=== PATIENT | female | born 1965 | race Two or more races ===

== ENCOUNTER 2021-11-25 15:38 | Inpatient (IN) | payer OTHER ==
[~2021-11-25] VITALS: Ht 160 cm; Wt 54.4 kg
[2021-11-25] MEDS ORDERED: HUMALOG100 UNIT/2 SQ (15:47)
[2021-11-25] MEDS ORDERED: COZAAR25 MG PO (15:47)
--- NOTE | 2021-11-25 15:48 | NUR ---
PACIENTE REFIERE DOLOR DE PECHO DIARREAS, DOLOR ABDOMINAL DESDE JAREN. PACIENTE UBICADA EN LA CAMA 6.
--- NOTE | 2021-11-25 18:16 | NUR ---
SE EDUCA A PTE SOBRE TX MEDICO ESTA REFIERE ENTENDER. SE CARRIE MUESTRAS DE LABORATORIO UTILIZANDO MEDIDAS ASEPTICAS. SE COLOCA H/L EL CUAL SE ENCUENTRA PATENTE. SE ADMINISTRAN MEDICAMENTOS A PTE LOS CUALES TOLERA. SE NOTIFICAN ABGS PENDIENTES A REALIZAR.
--- NOTE | 2021-11-25 20:01 | NUR ---
SE REALIZA ADMINISTRACION DE MEDICAMENTOS POR ORDEN MEDICA. SE ORIENTA A PACIENTE SOBRE USO Y EFECTOS.
--- NOTE | 2021-11-25 21:58 | NUR ---
SE REALIZAN MUESTRAS DE CASSY POR ORDEN MEDICA Y SE ORIENTA A PACIENTE SOBRE USO Y EFECTOS.
--- NOTE | 2021-11-25 23:25 | NUR ---
SE RECIBE PTE FEMENINA ALERTA Y ORIENTADA EN [place] ESFERAS DEL TURNO ANTERIOR; SE OBSERVA CON BUEN PATRON RESPIRATORIO Y NO REFIERE DOLOR. VENOPUNCION PATENTE, MARIANO DE EDEMA Y ERITEMA RECIBIENDO TERAPIA DE IVFS 0.9NSS BAJANDO A 250ML/HR. PTE EN NATI NIVEL MAS BAJAO CON BARANDAS ELEVADAS Y FRENOS COLOCADOS POR SEGURIDAD. SE ADMINISTRAN MEDICAMENTOS, BAJO MEDIDAS ASEPTICAS. PTE NO PRESENTA REACCION ADVERSA AL MOMENTO.
--- NOTE | 2021-11-26 07:13 | NUR ---
PTE ALERTA Y ORIENTADA POR LAURA ESFERAS CON BUEN PATRON RESPIRATORIO. TIENE CANCALIZACION PATENTE MARIANO DE EDEMA Y ERITEMA. CONSULTA CON DR.MUNOZ MOYER
--- NOTE | 2021-11-26 08:12 | NUR ---
SE NOTIFICA A MRS. PICKARD SOBRE SONOGRAFIA ABDOMINAL.
[2021-11-30] MEDS ORDERED: PANTOPRAZOLE SO40 MG (08:39)
[2021-11-30] MEDS ORDERED: IRBESARTAN-HCT1 EAC1 (08:39)
[2021-11-30] MEDS ORDERED: LANSOPRAZOLE30 MG (08:40)
[2021-11-30] MEDS ORDERED: METHIMAZOLE10 MG (08:40)
[2021-11-30] MEDS ORDERED: ZOLPIDEM TARTRA10 MG (08:40)
== END 2021-12-01 11:33 | disposition home or self-care (01) | DRG 370 ==
LOC: ER 15:38 → ICU 11-26 11:39 → MEDJ 11-30 11:57
PROVIDERS: ADMIT Internal Medicine; ATTEND Internal Medicine
PROC: BW40ZZZ Ultrasonography of Abdomen (ICD-10-PCS; principal; 2021-11-26)
PROC: 0DJ08ZZ Inspection of Upper Intestinal Tract, Via Natural or Artificial Opening Endoscopic (ICD-10-PCS; 2021-11-30)
DX: K22.6 Gastro-esophageal laceration-hemorrhage syndrome (principal); Z79.4 Long term (current) use of insulin; Z85.038 Personal history of other malignant neoplasm of large intestine; Z08 Encounter for follow-up examination after completed treatment for malignant neoplasm; E05.80 Other thyrotoxicosis without thyrotoxic crisis or storm; Z20.822 Contact with and (suspected) exposure to COVID-19

== ENCOUNTER 2022-02-12 10:49 | Emergency (ER) | payer OTHER ==
[~2022-02-12] VITALS: Ht 162.6 cm; Wt 54.4 kg
[~2022-02-12 10:49] MED LIST: COZAAR25 MG PO; HUMALOG100 UNIT/2 SQ; IRBESARTAN-HCT1 EAC1; LANSOPRAZOLE30 MG; METHIMAZOLE10 MG; PANTOPRAZOLE SO40 MG; ZOLPIDEM TARTRA10 MG
== END 2022-02-12 19:48 | disposition home or self-care (01) ==
LOC: ER 10:49
DX: E86.0 Dehydration (principal); I10 Essential (primary) hypertension; E03.9 Hypothyroidism, unspecified; K22.10 Ulcer of esophagus without bleeding; E11.65 Type 2 diabetes mellitus with hyperglycemia; Z79.4 Long term (current) use of insulin; R19.7 Diarrhea, unspecified; Z20.822 Contact with and (suspected) exposure to COVID-19

== ENCOUNTER 2022-04-06 10:33 | Inpatient (IN) | payer OTHER ==
[~2022-04-06] VITALS: Ht 162.6 cm; Wt 54.4 kg
[2022-04-13] MEDS ORDERED: METOPROLOL TART50 MG PO (09:17)
[2022-04-13] MEDS ORDERED: HYDRALAZINE HCL25 MG PO (09:18)
[2022-04-13] MEDS ORDERED: INTESTINEX680 M1 PO (09:18)
[2022-04-13] MEDS ORDERED: FAMOTIDINE20 MG PO (09:18)
[2022-04-13] MEDS ORDERED: TAPAZOLE5 MG PO (09:19)
[2022-04-13] MEDS ORDERED: PANTOPRAZOLE SO40 MG PO (09:19)
[2022-04-13] MEDS ORDERED: CARAFATE1 GM PO (14:53)
== END 2022-04-13 15:07 | disposition home or self-care (01) | DRG 391 ==
LOC: ER 10:33 → MEDJ 21:36
PROVIDERS: ADMIT Internal Medicine; ATTEND Internal Medicine
PROC: BW21YZZ Computerized Tomography (CT Scan) of Abdomen and Pelvis using Other Contrast (ICD-10-PCS; 2022-04-06)
PROC: 02HV33Z Insertion of Infusion Device into Superior Vena Cava, Percutaneous Approach (ICD-10-PCS; 2022-04-06)
PROC: 0DB98ZX Excision of Duodenum, Via Natural or Artificial Opening Endoscopic, Diagnostic (ICD-10-PCS; principal; 2022-04-12)
PROC: 0DB68ZX Excision of Stomach, Via Natural or Artificial Opening Endoscopic, Diagnostic (ICD-10-PCS; 2022-04-12)
PROC: 0DB58ZX Excision of Esophagus, Via Natural or Artificial Opening Endoscopic, Diagnostic (ICD-10-PCS; 2022-04-12)
DX: K52.89 Other specified noninfective gastroenteritis and colitis (principal); K22.6 Gastro-esophageal laceration-hemorrhage syndrome; N17.8 Other acute kidney failure; K50.90 Crohn's disease, unspecified, without complications; K22.10 Ulcer of esophagus without bleeding; E87.0 Hyperosmolality and hypernatremia; K29.60 Other gastritis without bleeding; E86.0 Dehydration; K29.80 Duodenitis without bleeding; E11.65 Type 2 diabetes mellitus with hyperglycemia; Z79.4 Long term (current) use of insulin; Z20.822 Contact with and (suspected) exposure to COVID-19; I12.9 Hypertensive chronic kidney disease with stage 1 through stage 4 chronic kidney disease, or unspecified chronic kidney disease; E11.22 Type 2 diabetes mellitus with diabetic chronic kidney disease; N18.9 Chronic kidney disease, unspecified; E05.90 Thyrotoxicosis, unspecified without thyrotoxic crisis or storm

== ENCOUNTER 2022-11-10 11:41 | Inpatient (IN) | payer OTHER ==
[~2022-11-10] VITALS: Ht 167.6 cm; Wt 74.8 kg
[~2022-11-10 11:41] MED LIST changes: +CARAFATE1 GM PO; +FAMOTIDINE20 MG PO; +HYDRALAZINE HCL25 MG PO; +INTESTINEX680 M1 PO; +METOPROLOL TART50 MG PO; +PANTOPRAZOLE SO40 MG PO; +TAPAZOLE5 MG PO
[2022-11-13] MEDS ORDERED: NIFEDIPINE ER60 M1 (14:24)
[2022-11-13] MEDS ORDERED: FAMOTIDINE20 MG (14:24)
[2022-11-13] MEDS ORDERED: FARXIGA10 MG (14:24)
[2022-11-13] MEDS ORDERED: ROSUVASTATIN CA40 MG (14:24)
[2022-11-13] MEDS ORDERED: PROPRANOLOL HCL20 MG (14:24)
[2022-11-13] MEDS ORDERED: METFORMIN HCL500 M4 (14:24)
[2022-11-13] MEDS ORDERED: PANTOPRAZOLE SO40 MG (14:24)
== END 2022-11-17 15:57 | disposition home or self-care (01) | DRG 690 ==
LOC: ER 11:41 → MEDI 19:00
PROVIDERS: ADMIT Internal Medicine; ATTEND Internal Medicine
PROC: CG4 Nuclear Medicine, Endocrine System, Nonimaging Nuclear Medicine Uptake (ICD-10-PCS; principal; 2022-11-14)
PROC: 4A12X4Z Monitoring of Cardiac Electrical Activity, External Approach (ICD-10-PCS; 2022-11-15)
DX: N39.0 Urinary tract infection, site not specified (principal); N17.8 Other acute kidney failure; D72.828 Other elevated white blood cell count; E05.80 Other thyrotoxicosis without thyrotoxic crisis or storm; E11.22 Type 2 diabetes mellitus with diabetic chronic kidney disease; I12.9 Hypertensive chronic kidney disease with stage 1 through stage 4 chronic kidney disease, or unspecified chronic kidney disease; N18.9 Chronic kidney disease, unspecified; E86.0 Dehydration; K52.9 Noninfective gastroenteritis and colitis, unspecified; Z79.4 Long term (current) use of insulin; Z87.891 Personal history of nicotine dependence

== ENCOUNTER 2022-11-20 12:47 | Outpatient (CLI) | payer OTHER ==
[~2022-11-20 12:47] MED LIST changes: +FAMOTIDINE20 MG; +FARXIGA10 MG; +METFORMIN HCL500 M4; +NIFEDIPINE ER60 M1; +PROPRANOLOL HCL20 MG; +ROSUVASTATIN CA40 MG
== END 2022-11-20 12:48 | disposition home or self-care (01) ==
LOC: NUCLEAR 12:47
PROVIDERS: ATTEND Internal Medicine Sports Medicine
DX: E05.90 Thyrotoxicosis, unspecified without thyrotoxic crisis or storm (principal); E04.9 Nontoxic goiter, unspecified; E04.1 Nontoxic single thyroid nodule

== ENCOUNTER 2023-08-10 17:00 | Inpatient (IN) | payer OTHER ==
[~2023-08-10] VITALS: Ht 162.6 cm; Wt 59.0 kg
[2023-08-10 19:37] LABS: ALBUMIN 4.4 gm/dL (3.4-5.0); BILIRUBIN TOTAL 1.09 mg/dL (0.3-1.2); CALCIUM 10.1 mg/dL (8.5-10.1); CREATININE SERUM 2.58 mg/dL (0.55-1.02); GFR 19.01; GLOBULINA 4.4 G/DL (2.4-3.5); TOTAL PROTEIN 8.8 gm/dL (6.4-8.2)
[2023-08-10 19:40] LABS: POTASSIUM 2.72 mEq/L (3.5-5.1)
[2023-08-10 19:45] LABS: HEMATOCRIT 48.8 % (36.0-45.00); HEMOGLOBIN 16.8 g/dL (12.0-15.00); MEAN CELL VOLUME 83.2 fL (80.00-100.00); MEAN CORPUSCULAR HEMOGLOBIN 28.7 pg (27.00-32.0); MEAN CORPUSCULAR HGB CONC 34.5 g/dl (32.0-36.0); PLATELET COUNT 276 K/uL (150-450); RED BLOOD COUNT 5.87 M/uL (4.00-6.00); RED CELL DISTRIBUTION WIDTH 14.1 % (11.5-14.5)
[2023-08-11 13:15] LABS: ALBUMIN 3.9 gm/dL (3.4-5.0); BILIRUBIN TOTAL 0.87 mg/dL (0.3-1.2); CALCIUM 9.4 mg/dL (8.5-10.1); CREATININE SERUM 1.9 mg/dL (0.55-1.02); GFR 26.96; GLOBULINA 3.8 G/DL (2.4-3.5); MAGNESIUM 2.5 mg/dL (1.8-2.4); POTASSIUM 3.58 mEq/L (3.5-5.1); TOTAL PROTEIN 7.7 gm/dL (6.4-8.2)
[2023-08-12 11:18] LABS: HEMATOCRIT 41.6 % (36.0-45.00); MEAN CELL VOLUME 84.2 fL (80.00-100.00); MEAN CORPUSCULAR HEMOGLOBIN 28.5 pg (27.00-32.0); MEAN CORPUSCULAR HGB CONC 33.8 g/dl (32.0-36.0); PLATELET COUNT 209 K/uL (150-450); RED BLOOD COUNT 4.94 M/uL (4.00-6.00); RED CELL DISTRIBUTION WIDTH 14.7 % (11.5-14.5)
[2023-08-12 12:07] LABS: ERYTHROCYTE SEDIMENTATION RATE 40 mm/hr
[2023-08-12 12:12] LABS: PH,URINE 6.5 (5.0-8.0); URINE APPEARANCE Clear; URINE BILIRRUBIN Negative (NEGATIVE); URINE BLOOD Negative; URINE COLOR Yellow; URINE LEUKOCYTE Negative; URINE NITRATE Negative; URINE PROTEIN Negative (NEGATIVE); URINE UROBILINOGEN 0.2 E.U./dl
[2023-08-12 12:14] LABS: PARTIAL THROMBOPLASTIN TIME 26.4 SECONDS (22.0-34.0); PROTHROMBIN TIME 10.5 SECONDS (9.0-11.5)
[2023-08-12 12:15] LABS: ALBUMIN 3.9 gm/dL (3.4-5.0); BILIRUBIN TOTAL 0.83 mg/dL (0.3-1.2); BILIRUBIN,CONJUGATED 0.21 mg/dL (0.0-0.2); BILIRUBIN,UNCONJUGATED 0.62 mg/dL (0.0-0.6); CALCIUM 9.5 mg/dL (8.5-10.1); CHOL HDL RATIO 4.1 (0-5.0); CREATININE SERUM 1.7 mg/dL (0.55-1.02); GFR 30.66; GLOBULINA 3.6 G/DL (2.4-3.5); POTASSIUM 3.72 mEq/L (3.5-5.1); T4 FREE 1.4 NG/ML (0.76-1.46); TOTAL PROTEIN 7.5 gm/dL (6.4-8.2)
[2023-08-12 12:16] LABS: URINE BACTERIA 146.1 uL (0.0-1933); URINE EPITHELIAL CELLS 55.1 uL (0.0-38.8); URINE RBC 2.1 uL (0.0-20.8); URINE WBC 39.7 uL (0.0-23.2)
[2023-08-12 12:36] LABS: C-REACTIVE PROTEIN 2.49 MG/DL (0.00-0.29)
[2023-08-12 12:46] LABS: URINE GLUCOSE >=1000 MG/DL (NEGATIVE)
[2023-08-13 09:59] LABS: HEMATOCRIT 40.6 % (36.0-45.00); HEMOGLOBIN 13.9 g/dL (12.0-15.00); MEAN CORPUSCULAR HEMOGLOBIN 28.7 pg (27.00-32.0); MEAN CORPUSCULAR HGB CONC 34.2 g/dl (32.0-36.0); PLATELET COUNT 174 K/uL (150-450); RED BLOOD COUNT 4.83 M/uL (4.00-6.00); RED CELL DISTRIBUTION WIDTH 14.4 % (11.5-14.5)
[2023-08-13 10:51] LABS: ALBUMIN 3.5 gm/dL (3.4-5.0); BILIRUBIN TOTAL 1.02 mg/dL (0.3-1.2); CALCIUM 8.9 mg/dL (8.5-10.1); CREATININE SERUM 1.07 mg/dL (0.55-1.02); GFR 52.31; GLOBULINA 3.2 G/DL (2.4-3.5); MAGNESIUM 1.9 mg/dL (1.8-2.4); POTASSIUM 3.15 mEq/L (3.5-5.1); TOTAL PROTEIN 6.7 gm/dL (6.4-8.2)
[2023-08-13 11:00] LABS: PHOSPHOROUS 1.1 mg/dL (2.5-4.9)
[2023-08-14 15:54] LABS: CALCIUM 8.6 mg/dL (8.5-10.1); CREATININE SERUM 1.13 mg/dL (0.55-1.02); GFR 49.12; POTASSIUM 3.63 mEq/L (3.5-5.1)
[2023-08-14 16:16] LABS: TSH 0.133 uIU/mL (0.358-3.74)
[2023-08-15 13:25] LABS: BILIRUBIN TOTAL 0.51 mg/dL (0.3-1.2); CALCIUM 8.3 mg/dL (8.5-10.1); CREATININE SERUM 1.07 mg/dL (0.55-1.02); GFR 52.31; GLOBULINA 2.8 G/DL (2.4-3.5); MAGNESIUM 1.6 mg/dL (1.8-2.4); PHOSPHOROUS 2.2 mg/dL (2.5-4.9); POTASSIUM 4.05 mEq/L (3.5-5.1); TOTAL PROTEIN 5.8 gm/dL (6.4-8.2)
[2023-08-16 06:56] LABS: HEMATOCRIT 31.4 % (36.0-45.00); HEMOGLOBIN 10.7 g/dL (12.0-15.00); MEAN CELL VOLUME 85.2 fL (80.00-100.00); MEAN CORPUSCULAR HEMOGLOBIN 29.1 pg (27.00-32.0); MEAN CORPUSCULAR HGB CONC 34.2 g/dl (32.0-36.0); PLATELET COUNT 132 K/uL (150-450); RED BLOOD COUNT 3.68 M/uL (4.00-6.00); RED CELL DISTRIBUTION WIDTH 14.2 % (11.5-14.5)
[2023-08-16 07:25] LABS: ALBUMIN 2.6 gm/dL (3.4-5.0); BILIRUBIN TOTAL 0.41 mg/dL (0.3-1.2); CREATININE SERUM 0.94 mg/dL (0.55-1.02); GFR 60.74; GLOBULINA 2.6 G/DL (2.4-3.5); MAGNESIUM 2.5 mg/dL (1.8-2.4); PHOSPHOROUS 2.4 mg/dL (2.5-4.9); POTASSIUM 4.24 mEq/L (3.5-5.1); TOTAL PROTEIN 5.2 gm/dL (6.4-8.2)
[2023-08-22 05:43] LABS: hiaa 1.5 mg/L (Undefined); hiaa 24 0.6 mg/24 hr (0.0-14.9)
== END 2023-08-17 18:56 | disposition home or self-care (01) | DRG 392 ==
LOC: ER 17:00 → MEDI 08-11 00:46
PROVIDERS: General Practice; Internal Medicine; Internal Medicine Hematology & Oncology; ADMIT Internal Medicine; ATTEND Internal Medicine
PROC: BW21ZZZ Computerized Tomography (CT Scan) of Abdomen and Pelvis (ICD-10-PCS; principal; 2023-08-10)
DX: K52.9 Noninfective gastroenteritis and colitis, unspecified (principal); N17.9 Acute kidney failure, unspecified; E87.1 Hypo-osmolality and hyponatremia; K56.609 Unspecified intestinal obstruction, unspecified as to partial versus complete obstruction; E87.20 Acidosis, unspecified; R11.10 Vomiting, unspecified; E87.6 Hypokalemia; K29.70 Gastritis, unspecified, without bleeding; E11.9 Type 2 diabetes mellitus without complications; Z79.4 Long term (current) use of insulin; E05.90 Thyrotoxicosis, unspecified without thyrotoxic crisis or storm; K25.9 Gastric ulcer, unspecified as acute or chronic, without hemorrhage or perforation; D3A.010 Benign carcinoid tumor of the duodenum